=== PATIENT | female | born 1940 | race African-American/Black ===

== ENCOUNTER 2019-04-13 13:02 | Outpatient (CLI) | payer MEDICARE, BC ==
[~2019-04-13] VITALS: Ht 157.5 cm; Wt 67.6 kg
[~2019-04-13 13:02] MED LIST: ALENDRONATE SOD70 MG ORAL; FISH OIL500 M2 PO; HYDROCHLOROTHIA25 MG ORAL; LOSARTAN POTASS50 MG ORAL; METOPROLOL TAR100 M1 ORAL; MULTIVITAMINS1 EA14 PO; OYSCO-500500 M1 PO; VITAMIN D250000 UNI1 ORAL
[2019-04-13 15:48] VITALS: BP 128/67
[2019-04-13] MEDS ORDERED: AMLODIPINE BESYL5 MG ORAL (15:48)
--- NOTE | 2019-04-15 22:00 | Consultation ---
DATE OF CONSULTATION: 04/13/2019 CHIEF COMPLAINT: Referred for a screening colonoscopy and chronic gastroesophageal reflux disease. PAST MEDICAL HISTORY: 1. Hypertension. 2. Right breast cancer. 3. Gastroesophageal reflux disease. 4. Osteoporosis. MEDICATIONS: Please see medication reconciliation list. ALLERGIES: Codeine. FAMILY HISTORY: No family history of GI malignancies. SOCIAL HISTORY: The patient drinks socially alcohol, but no intravenous drug abuse and no tobacco abuse. REVIEW OF SYSTEMS: A 10-point review of systems was performed and pertinent positives in HPI. PHYSICAL EXAMINATION: VITAL SIGNS: Temperature 98.4, blood pressure is 128/67, pulse is 72, and respirations 20. HEENT: Normocephalic and atraumatic. Sclerae anicteric. NECK: Supple. No evidence of obvious lymphadenopathy. CARDIOVASCULAR: Regular rate and rhythm. Plus S1 and S2. No obvious murmur. LUNGS: Clear to auscultation bilaterally. ABDOMEN: Positive bowel sounds. Soft and nontender. No rebound. No guarding. No peritoneal sign. EXTREMITIES: No cyanosis. No clubbing. No edema. NEUROLOGIC: Nonfocal. ASSESSMENT AND PLAN: This is a 79-year-old female with chronic gastroesophageal reflux disease and constipation needs screening colonoscopy and also endoscopy for evaluation of chronic gastroesophageal reflux disease. The patient was informed of the risks and benefits of the procedure. The colonoscopy prep and instruction was given to her. We will plan to schedule her soon. I want to thank, Dr. Rashard Kramer, for this kind referral. Regulo Felipe M.D. DR: PROSPER JOB#: [id number] CC: Rasahrd Kramer M.D.; Fax#: [phone]
== END 2019-04-13 15:02 | disposition home or self-care (01) ==
LOC: PAN 13:02
DX: K21.9 Gastro-esophageal reflux disease without esophagitis (principal); I10 Essential (primary) hypertension; M81.0 Age-related osteoporosis without current pathological fracture; Z85.3 Personal history of malignant neoplasm of breast; Z88.6 Allergy status to analgesic agent
CPT/HCPCS: 99202

== ENCOUNTER 2019-05-01 07:10 | Day surgery (SDC) | payer MEDICARE, BC ==
[~2019-05-01] VITALS: Ht 157.5 cm; Wt 67.6 kg
[2019-05-01] VITALS (10 sets, daily range): BP systolic 115–129; BP diastolic 52–69
[~2019-05-01 07:10] MED LIST changes: +AMLODIPINE BESYL5 MG ORAL
[2019-05-01] MEDS ORDERED: fentaNYL 100 mcg/2 mL IV ONE (07:11)
[2019-05-01] MEDS ORDERED: SIMBRINZA 1%-0.28 ML OP (07:58)
[2019-05-01] MEDS ORDERED: ZOCOR20 MG ORAL (07:58)
--- NOTE | 2019-05-01 08:47 | Pre-Procedure Note/Attestation ---
Pre-Procedure Note/Attestation Complete Prior to Procedure Planned Procedure: not applicable Procedure Narrative: EGD and colonoscopy Indications for Procedure Pre-Operative Diagnosis: GERD and screening colon Attestation I attest that I discussed the nature of the procedure; its benefits; risks and complications; and alternatives (and the risks and benefits of such alternatives ), prior to the procedure, with the patient (or the patient's legal telemarketing sales representative). I attest that, if there was a reasonable possibility of needing a blood transfusion, the patient (or the patient's legal telemarketing sales representative) was given the [facility] standardized written summary, pursuant to the [place] Blood Safety Act ([place] Health and Safety Code # 1645, as amended). I attest that I re-evaluated the patient just prior to the surgery and that there has been no change in the patient's H&P, except as documented below: Regulo Felipe MD May 01, 2019 08:47
--- NOTE | 2019-05-01 08:47 | Short Stay Surgery H&P ---
History of Present Illness History of Present Illness Chief Complaint see recent office note HPI Gretchen Sherman is a 79 year old female who was admitted on for Abdominal Pain, Gerd Patient History Allergies: Coded Allergies: CODEINE (Verified Allergy, Intermediate, Hives, 05/01/19) Uncoded Allergies: chocolate (Allergy, Severe, hives, 05/01/19) Medication History Scheduled Amlodipine Besylate* (Amlodipine Besylate*), 5 MG ORAL DAILY, (Reported) Brinzolamide/Brimonid Tart (Simbrinza 1%-0.2% Eye Drops), 8 ML OP BID, (Reported ) Hydrochlorothiazide* (Hydrochlorothiazide*), 25 MG ORAL DAILY, (Reported) Losartan Potassium* (Losartan Potassium*), 50 MG ORAL DAILY, (Reported) Metoprolol Tartrate* (Metoprolol Tartrate*), 100 MG ORAL EVERY 12 HOURS, ( Reported) Simvastatin (Zocor), 20 MG ORAL BEDTIME, (Reported) Discontinued Medications Calcium Carbonate (Oysco-500), 500 MG PO BID, (Reported) Discontinued Reason: Pt stopped taking med Physical Exam Vital Signs Last Vital Signs Date Time Temp Pulse Resp B/P (MAP) Pulse Ox O2 Delivery O2 Flow Rate FiO2 05/01/19 08:00 Room Air 05/01/19 07:43 97.8 65 18 129/64 98 Plan Attestation Are the patient's medical conditions optimized for surgery? Regulo Felipe MD May 01, 2019 08:47
--- NOTE | 2019-05-01 08:48 | Anethesia Preoperative Eval ---
Anesthesia Pre-op PMH/ROS General Date of Evaluation: May 01, 2019 Time of Evaluation: 08:44 ASA Score: ASA 3 Mallampati Score Class I : Soft palate, uvula, fauces, pillars visible Class II: Soft palate, uvula, fauces visible Class III: Soft palate, base of uvula visible Class IV: Only hard plate visible Mallampati Classification: Class II Surgeon: Matteo Diagnosis: Abdominla pain, GERD Surgical Procedure: EGD colonoscopy Anesthesia History: none Family History: no anesthesia problems Allergies: Coded Allergies: CODEINE (Verified Allergy, Intermediate, Hives, 05/01/19) Uncoded Allergies: chocolate (Allergy, Severe, hives, 05/01/19) Medications: see eMAR Patient NPO?: Yes NPO Date: May 01, 2019 NPO Time: 00:00 Past Medical History Cardiovascular: Reports: HTN, arrhythmia - not on any meds, other - hypercholesterolemia Neurologic/Psychiatric: Reports: other - migraines HEENT: Reports: glaucoma Musculoskeletal/Integumentary: Reports: DDD, other - RIGHT breast CA PMH Narrative: as noted above PSxH Narrative: mastectomy, hysterectomy Anesthesia Pre-op Phys. Exam Physician Exam Last Vital Signs Date Time Temp Pulse Resp B/P (MAP) Pulse Ox O2 Delivery O2 Flow Rate FiO2 05/01/19 08:00 Room Air 05/01/19 07:43 97.8 65 18 129/64 98 Constitutional: NAD Neurologic: other - alert & oriented Cardiovascular: RRR Respiratory: CTA Gastrointestinal: S/NT/ND Airway Exam Mallampati Score: Class II MO: full Neck: FROM TMD: > 3 FB ROM: full Teeth: missing Dentures: upper, lower Anesthesia Pre-op A/P Studies Pre-op Studies: EKG - NSR Risk Assessment & Plan Assessment: ASA 3 ok to proceed Plan: MAC Status Change Before Surgery: No Pre-Antibiotics Given Within 1 Hr of Incision: Filomena Mandujano CRNA May 01, 2019 08:48
[2019-05-01] MEDS ORDERED: Propofol 200mg/20ml IV ONE (09:00)
--- NOTE | 2019-05-01 09:43 | Endoscopy Procedure Note ---
Endoscopy Procedure Note General Indication for Procedure: screening colon, GERD Procedures Performed: EGD, colonoscopy Operative Findings/Diagnosis: gastritis, 2 polyps Specimen: yes Pt Tolerated Procedure Well: Yes Estimated Blood Loss: none Anesthesia Anesthesiologist: raimundo Anesthesia: MAC Inserted Devices Implant(s) used?: No Quality Quality of Bowel Preparation: Excellent Did scope reach the cecum?: Yes Was there any complications?: No GI Core Measures 50 yrs or older w/o bx or poly: No 10yrs. F/U recommended: Yes If not recommended, why?: Above average risk 18 years or older w/prev. colo: No Regulo Felipe MD May 01, 2019 09:43
--- NOTE | 2019-05-01 09:51 | Immediate Post-Op Evaluation ---
Immediate Post-Op Evalulation Immediate Post-Op Evalulation Procedure: EGD, colonoscpy, polypectomy Date of Evaluation: May 01, 2019 Time of Evaluation: 09:45 IV Fluids: 0.9 NS 300 ml Blood Pressure Systolic: 115 Blood Pressure Diastolic: 65 Pulse Rate: 61 Respiratory Rate: 16 O2 Sat by Pulse Oximetry: 100 Temperature (Fahrenheit): 97.6 Pain Score (1-10): 0 Nausea: No Vomiting: No Complications none Patient Status: awake, no response, patent Hydration Status: adequate Given Within 1 Hr of Incision: Filomena Mandujano CRNA May 01, 2019 09:51
--- NOTE | 2019-05-01 10:43 | 48 Hour Post Anesthesia Eval ---
Post Anesthesia Evaluation Procedure: EGD, colonoscpy, polypectomy Date of Evaluation: May 01, 2019 Time of Evaluation: 10:42 Blood Pressure Systolic: 126 0: 66 Pulse Rate: 57 Respiratory Rate: 16 Temperature (Fahrenheit): 97.4 O2 Sat by Pulse Oximetry: 99 Airway: patent Nausea: No Vomiting: No Pain Intensity: 0 Hydration Status: adequate Cardiopulmonary Status: stable Mental Status/LOC: patient returned to baseline Follow-up Care/Observations: per GI Post-Anesthesia Complications: none Follow-up care needed: N/A Filomena Garrido CRNA May 01, 2019 10:43
--- NOTE | 2019-05-01 15:45 | Procedure Note ---
DATE OF PROCEDURE: 05/01/2019 SURGEON: Regulo Felipe M.D. PROCEDURE: Upper endoscopy with biopsy and colonoscopy with snare polypectomy. ANESTHESIA: Per CYNTHIA Mcfarlane. INSTRUMENT: Olympus adult flexible upper endoscope and colonoscope. INDICATION: Screening colonoscopy evaluation, chronic GERD. REASON FOR PROCEDURE: The procedure, risks, benefits, and possible consequences, including hemorrhage, aspiration, perforation and infection, and alternative treatments, were explained to the patient/legal guardian by Dr. Regulo Felipe and the patient/legal guardian understood and accepted these risks. PROCEDURE IN DETAIL: After informed consent was obtained and the patient was adequately sedated, Olympus upper endoscope was advanced from mouth into the second portion of the duodenum and retroflexion was performed in the stomach. The patient has evidence of diffuse gastritis. Random biopsy from antrum and body was obtained to rule out H. pylori infection. Otherwise, normal upper endoscopic examination. At this time, the upper endoscope was retrieved. The patient was turned over for colonoscopy. First, rectal exam was performed, which was normal. Then, the scope was advanced from the rectum into the cecum documented by appendix orifice, ileocecal valve, and right upper quadrant palpation. Quality of prep was very good. The patient has some mild melanosis coli throughout the colon. There were two diminutive polyps in the transverse colon, proximal transverse colon, removed with the snare polypectomy technique. The rest of the examination grossly looked within normal limit. Retroflexion of rectum showed evidence of internal hemorrhoids. SUMMARY OF FINDINGS: 1. Gastritis, status post biopsy. 2. Internal hemorrhoids. 3. Two colonic polyp removed, see above for details. RECOMMENDATIONS: Follow up pathology. Treat accordingly. Repeat colonoscopy no later than five years. I want to thank Dr. Rashard Kramer, for this kind referral. Regulo Felipe M.D. DR: RUDI JOB#: [id number] CC: Rashard Kramer M.D.; Fax#: [phone]
--- NOTE | 2019-05-06 17:16 | Cardiology Report ---
APPROVED REPORT EKG Measurement Heart [id number] Normal sinus rhythm Normal ECG
== END 2019-05-01 11:05 | disposition home or self-care (01) ==
LOC: GAS 07:10
DX: Z12.11 Encounter for screening for malignant neoplasm of colon (principal); K29.50 Unspecified chronic gastritis without bleeding; D12.3 Benign neoplasm of transverse colon; K21.9 Gastro-esophageal reflux disease without esophagitis; K64.8 Other hemorrhoids; K63.5 Polyp of colon; K63.89 Other specified diseases of intestine; Z88.6 Allergy status to analgesic agent; Z91.018 Allergy to other foods; Z79.899 Other long term (current) drug therapy; E78.00 Pure hypercholesterolemia, unspecified; I10 Essential (primary) hypertension; Z85.3 Personal history of malignant neoplasm of breast; M19.90 Unspecified osteoarthritis, unspecified site; Z90.10 Acquired absence of unspecified breast and nipple; Z90.710 Acquired absence of both cervix and uterus
CPT/HCPCS: 43239; 45385; 93005; J2704; J3010; 94003; 94150

== ENCOUNTER 2019-05-21 13:59 | Outpatient (CLI) | payer MEDICARE, BC ==
[~2019-05-21 13:59] MED LIST changes: +SIMBRINZA 1%-0.28 ML OP; +ZOCOR20 MG ORAL
--- NOTE | 2019-05-21 14:23 | General Progress Note ---
Assessment/Plan Problem List: (1) Constipation ICD Codes: K59.00 - Constipation, unspecified SNOMED: 60835038 (2) Osteoporosis ICD Codes: M81.0 - Age-related osteoporosis without current pathological fracture SNOMED: 71563810 (3) Breast cancer ICD Codes: C50.919 - Malignant neoplasm of unspecified site of unspecified female breast SNOMED: 037618970 (4) GERD (gastroesophageal reflux disease) ICD Codes: K21.9 - Gastro-esophageal reflux disease without esophagitis SNOMED: 093986770 (5) HTN (hypertension) ICD Codes: I10 - Essential (primary) hypertension SNOMED: 93160138 Assessment/Plan: EGD and colonoscopy reviewed add nhi RTC 3 months Subjective ROS Limited/Unobtainable: Yes Allergies: Coded Allergies: CODEINE (Verified Allergy, Intermediate, Hives, 05/01/19) Uncoded Allergies: chocolate (Allergy, Severe, hives, 05/01/19) Objective General Appearance: alert EENT: normal ENT inspection Neck: supple Cardiovascular: normal rate Respiratory/Chest: lungs clear Abdomen: normal bowel sounds, non tender, soft Extremities: non-tender Regulo Felipe MD May 21, 2019 14:23
== END 2019-05-21 15:59 | disposition home or self-care (01) ==
LOC: PAN 13:59
DX: K59.00 Constipation, unspecified (principal); M81.0 Age-related osteoporosis without current pathological fracture; C50.919 Malignant neoplasm of unspecified site of unspecified female breast; K21.9 Gastro-esophageal reflux disease without esophagitis; I10 Essential (primary) hypertension; Z88.6 Allergy status to analgesic agent; Z91.018 Allergy to other foods
CPT/HCPCS: 99212